=== PATIENT | female | born 1985 | race Two or more races ===

== ENCOUNTER 2018-03-10 15:22 | Emergency (ER) | payer MEDICAID ==
[~2018-03-10] VITALS: Ht 167.6 cm; Wt 86.2 kg
[2018-03-10 16:46] VITALS: BP 118/92
[2018-03-10] MEDS ORDERED: IBUPROFEN 800 MG TAB PO ONE (17:45)
== END 2018-03-10 18:09 | disposition home or self-care (01) ==
LOC: ER 15:22 → EDBD 15:22 → ER 17:58
DX: S00.03XA Contusion of scalp, initial encounter (principal); S00.83XA Contusion of other part of head, initial encounter; F15.90 Other stimulant use, unspecified, uncomplicated; Y09 Assault by unspecified means; Y93.89 Activity, other specified; Y99.8 Other external cause status; Y92.89 Other specified places as the place of occurrence of the external cause
CPT/HCPCS: 70450